=== PATIENT | male | born 1985 | race Caucasian/White ===

== ENCOUNTER 2022-03-12 05:59 | Emergency (ER) | payer OTHER ==
[~2022-03-12] VITALS: Ht 180.3 cm; Wt 172.4 kg
--- NOTE | 2022-03-12 06:10 | NUR ---
BIBS FROM HOME FOR C/O LABORED BREATHING R/A STARTED WITH "COLD SYMPTOMS" 2 DAYS AGO IN HOME COVID TEST: NEGATIVE. PT A/OX4. PT AMBULATORY WITH STEADY GAIT.
--- NOTE | 2022-03-12 06:23 | NUR ---
COVID PCR AND INFLUENZA SWAB COLLECTED AND SENT TO LAB
[2022-03-12] MEDS ORDERED: predniSONE 20 MG TABLET ONE (06:28)
--- NOTE | 2022-03-12 06:29 | NUR ---
RT AT PT'S BEDSIDE FOR BREATHING TX
[2022-03-12] MEDS ORDERED: ALBUTEROL FS 2.5 MG/3 ML VIAL.NEB NEB ONE ×2 (06:30→07:00)
[2022-03-12] MEDS ORDERED: IPRATROPIUM NEB FS 0.5 MG/2.5 ML AMPUL.NEB NEB ONE (06:30)
[2022-03-12] MEDS ORDERED: predniSONE 20 MG TABLET PO ONE (06:30)
[2022-03-12] MEDS ORDERED: IPRATROPIUM NEB FS 0.5 MG/2.5 ML AMPUL.NEB ONE (06:31)
[2022-03-12] MEDS ORDERED: ALBUTEROL FS 2.5 MG/3 ML VIAL.NEB ONE ×2 (06:31→06:55)
--- NOTE | 2022-03-12 06:38 | NUR ---
S[facility] BASIS AT PT'S BEDSIDE
[2022-03-12] MEDS ORDERED: ALBU8.5H8 INH (07:48)
[2022-03-12] MEDS ORDERED: PRED20TA PO (07:48)
[2022-03-12 08:06] VITALS: BP 131/85
--- NOTE | 2022-03-12 08:06 | NUR ---
Patient discharged to home in stable condition. Written and verbal after care instructions given. Patient verbalizes understanding of instruction.
== END 2022-03-12 08:06 | disposition home or self-care (01) ==
LOC: ER 06:06
DX: J98.01 Acute bronchospasm (principal); J06.9 Acute upper respiratory infection, unspecified; F17.210 Nicotine dependence, cigarettes, uncomplicated; I10 Essential (primary) hypertension; E66.01 Morbid (severe) obesity due to excess calories; Z68.43 Body mass index [BMI] 50.0-59.9, adult; Z20.822 Contact with and (suspected) exposure to COVID-19
CPT/HCPCS: 71045; 87804; 94640 ×2; 99285; 99406; C9803; J7512; U0003

== ENCOUNTER 2022-10-31 15:54 | Emergency (ER) | payer OTHER ==
[~2022-10-31] VITALS: Ht 182.9 cm; Wt 181.4 kg
[~2022-10-31 15:54] MED LIST: ALBU8.5H8 INH; PRED20TA PO
[2022-10-31 16:18] VITALS: BP 158/95
--- NOTE | 2022-10-31 17:00 | NUR ---
Patient discharged to home in stable condition. Written and verbal after care instructions given. Patient verbalizes understanding of instruction.
[2022-10-31] MEDS ORDERED: DEXT15DR6 LEFTEYE (17:01)
[2022-10-31] MEDS ORDERED: VALA100026 PO (17:01)
[2022-10-31] MEDS ORDERED: PRED20TA PO (17:01)
== END 2022-10-31 17:13 | disposition home or self-care (01) ==
LOC: ER 16:04
DX: G51.0 Bell's palsy (principal); I10 Essential (primary) hypertension; F17.200 Nicotine dependence, unspecified, uncomplicated; Z79.899 Other long term (current) drug therapy

== ENCOUNTER 2024-04-27 11:24 | Emergency (ER) | payer OTHER ==
[~2024-04-27] VITALS: Ht 182.9 cm; Wt 213.2 kg
[~2024-04-27 11:24] MED LIST changes: +DEXT15DR6 LEFTEYE; +VALA100026 PO
[2024-04-27 11:32] VITALS: BP 160/98; TEMP 98
[2024-04-27] MEDS ORDERED: IBUP-1955 PO (11:52)
[2024-04-27] MEDS ORDERED: CEPH-570 PO (11:52)
[2024-04-27] MEDS ORDERED: SULF1TAB48 PO (11:52)
[2024-04-27 11:57] VITALS: O2SAT 97
== END 2024-04-27 11:58 | disposition home or self-care (01) ==
LOC: ER 11:28
DX: T63.441A Toxic effect of venom of bees, accidental (unintentional), initial encounter (principal); L03.113 Cellulitis of right upper limb; M79.89 Other specified soft tissue disorders; I10 Essential (primary) hypertension; F17.200 Nicotine dependence, unspecified, uncomplicated; Y92.89 Other specified places as the place of occurrence of the external cause

== ENCOUNTER 2025-01-18 18:03 | Emergency (ER) | payer OTHER ==
[~2025-01-18] VITALS: Ht 180.3 cm; Wt 208.7 kg
[~2025-01-18 18:03] MED LIST changes: +CEPH-570 PO; +IBUP-1955 PO; +SULF1TAB48 PO
[2025-01-18] MEDS ORDERED: MAG HYDROX/AL HYDROX/SIMETH 30 ML UDC ONE (19:00)
[2025-01-18] MEDS ORDERED: FAMOTIDINE/PF INJ 20 MG/2 ML VIAL IV ONE (19:00)
[2025-01-18] MEDS ORDERED: LIDOCAINE VISCOUS 2% UD 15 ML UDC ONE (19:01)
[2025-01-18] MEDS ORDERED: DICYCLOMINE HCL 10 MG CAPSULE PO ONE (19:02)
[2025-01-18] MEDS: FAMOTIDINE/PF INJ 20 MG/2 ML VIAL IV ONE (19:02)
[2025-01-18 19:03] LABS: BASOPHILS # (AUTO) 0.1 K/uL (0.0-0.2); BASOPHILS % (AUTO) 1.3 % (0.0-2.0); EOSINOPHILS # (AUTO) 0.2 K/uL (0.0-0.7); EOSINOPHILS % (AUTO) 1.9 % (0.0-6.0); HEMATOCRIT 38 % (39-51); HEMOGLOBIN 12.2 g/dL (13.5-17.5); LYMPHOCYTES # (AUTO) 2.1 K/uL (0.8-4.8); MEAN CORPUSCULAR HEMOGLOBIN 25 PG (26.0-33.0); MEAN CORPUSCULAR HGB CONC 33 g/dl (31.0-36.0); MEAN CORPUSCULAR VOLUME 76 fL (80-96); MONOCYTES # (AUTO) 0.6 K/uL (0.1-1.30); MONOCYTES % (AUTO) 5.8 % (2.0-12.0); NEUTROPHILS # (AUTO) 7.4 K/uL (1.8-8.9); PLATELET COUNT (AUTO) 260 K/uL (150-450); RED BLOOD CELL COUNT(AUTO) 4.91 MIL/uL (4.5-6.0); RED CELL DISTRIBUTION WIDTH 17.3 % (11.5-15.0); WHITE BLOOD COUNT (AUTO) 10.4 K/uL (4.3-11.0)
[2025-01-18] MEDS: LIDOCAINE VISCOUS 2% UD 15 ML UDC MM ONE (19:03)
[2025-01-18] MEDS: DICYCLOMINE HCL 10 MG CAPSULE PO ONE (19:03)
[2025-01-18] MEDS: MAG HYDROX/AL HYDROX/SIMETH 30 ML UDC PO ONE (19:03)
[2025-01-18 19:12] LABS: CALCIUM, SERUM 8.6 mg/dL (8.5-10.1); CARBON DIOXIDE 29 mmol/L (21-32); CHLORIDE 104 mmol/L (98-107); CREATININE 0.9 mg/dL (0.6-1.3); GLUCOSE 93 mg/dL (74-106); POTASSIUM 4.1 mmol/L (3.5-5.1); SODIUM SERUM 140 mmol/L (136-145); UREA NITROGEN, BLOOD 16 mg/dL (7-18)
[2025-01-18] MEDS ORDERED: FAMO-131 PO (19:54)
[2025-01-18] MEDS ORDERED: DICY10CA37 PO (19:54)
[2025-01-18] MEDS ORDERED: HYDR-500 PO (19:54)
[2025-01-18 20:09] VITALS: BP 128/87; TEMP 98.6; O2SAT 99
== END 2025-01-18 20:10 | disposition home or self-care (01) ==
LOC: ER 18:26
DX: R07.9 Chest pain, unspecified (principal); F43.9 Reaction to severe stress, unspecified; F17.200 Nicotine dependence, unspecified, uncomplicated; I10 Essential (primary) hypertension; Z79.52 Long term (current) use of systemic steroids; Z79.624 Long term (current) use of inhibitors of nucleotide synthesis
CPT/HCPCS: 99285; 96374; 71045; 93005 ×3; 85025; 80048; 36415; 84484; J3490